=== PATIENT | female | born 1955 | race Caucasian/White ===

== ENCOUNTER 2022-06-24 11:43 | Emergency (ER) | payer OTHER, BC ==
[2022-06-24 12:10] VITALS: BP 149/93; PULSE 92; RESP 20; TEMP 98.5; BMI 25.2
[2022-06-24] MEDS ORDERED: DIPHTH,PERTUSS(ACELL),TET 0.5 ML DISP.SYRIN IM ONE ×2 (12:18→12:35)
== END 2022-06-24 12:46 | disposition home or self-care (01) ==
LOC: FER 11:43
PROC: 3E0234Z Introduction of Serum, Toxoid and Vaccine into Muscle, Percutaneous Approach (ICD-10-PCS; principal; 2022-06-24)
DX: S80.12XA Contusion of left lower leg, initial encounter (principal)
CPT/HCPCS: 90471; 90715; 99283-25

== ENCOUNTER 2022-12-06 20:30 | Emergency (ER) | payer OTHER, BC ==
[2022-12-06 20:53] VITALS: BP 139/90; PULSE 87; RESP 18; TEMP 97.9; BMI 25.9
== END 2022-12-06 21:20 | disposition home or self-care (01) ==
LOC: FER 20:30
DX: S90.32XA Contusion of left foot, initial encounter (principal); W20.8XXA Other cause of strike by thrown, projected or falling object, initial encounter
CPT/HCPCS: 73630-TC-LT; 99283-25

== ENCOUNTER 2023-03-07 21:55 | Emergency (ER) | payer OTHER, BC ==
[2023-03-07 22:05] VITALS: BP 126/83; PULSE 100; RESP 18; TEMP 98.3; BMI 25.6
== END 2023-03-07 22:37 | disposition home or self-care (01) ==
LOC: FER 21:55
PROC: 0HQKXZZ Repair Right Lower Leg Skin, External Approach (ICD-10-PCS; principal; 2023-03-07)
DX: S81.811A Laceration without foreign body, right lower leg, initial encounter (principal); W26.8XXA Contact with other sharp object(s), not elsewhere classified, initial encounter; Y93.89 Activity, other specified; Y92.810 Car as the place of occurrence of the external cause
CPT/HCPCS: 99282-25